=== PATIENT | female | born 1950 | race Caucasian/White ===

== ENCOUNTER 2025-02-25 10:32 | Day surgery (SDC) | payer OTHER, SELFPAY ==
--- NOTE | 2025-02-05 08:23 | PM.GYNHP.1 ---
History of Present Illness History of Present Illness Narrative: Caroline Cohen is a 74 year old female Date of procedure:?? feb 25, 2025 Preoperative diagnosis:? uterine prolapse cystocele (stage 3, +4) stress incontinence Planned Procedure:?? TVH, USVS, Ant repair, sling, cystoscopy Postop Meds Tylenol 1000 mg, ?3 times a day? Motrin 400 mg 3 times a day Oycodone 5 mg,? take 1 pill every 4-6 hr as needed, # 15? Colace,? 1 pill BID, for constipation CC: Prolapse and incontinence HPI: 73-year-old female who presents for evaluation of above complaint.?? She reports onset of symptoms 2 years ago.?? She considers this a? Moderate? problem. She is considering surgery for her prolapse and incontinence 1. Prolapse She reports a large vaginal bulge that protrudes past the introitus when she strains. She sees and feels it. She also has prolapse symptoms of heaviness, incomplete bladder emptying, and sometimes needs to push the bulge back in in order to empty her bladder. She was seen down at [facility] for prolapse and incontinence and was treated with 2 different types of incontinence dish pessaries. These both fell out and would not remain in place. She does not wish to try anymore pessaries. She would like to proceed with surgery. Exam demonstrates stage III prolapse with cystocele at +4 and cervix at +1. Also a positive empty cough stress test, PVR 85 cc. 2. Mixed stress and urge incontinence She has stress incontinence about once a day with the triggers as listed below. She has urge incontinence about 5 times a day with a full bladder and about once a week it is a large leak that runs down her legs. She uses 2 regular pads in the day and none at night. She has tried using Gemtesa for this but it did not help. She does not have urinary frequency, voids every 3-4 hours in the day, nocturia x1, she does have severe urgency. She has been trying to void by the clock about every 2-1/2-3 hours to preempt the leaking. She had a positive cough stress test on exam confirming the diagnosis of stress incontinence. She would like to proceed with surgery. We also discussed using oxybutynin XL 10 mg a day for the urge incontinence. She would prefer to have the surgery 1st and then after surgery see if she needs to treat her urge incontinence and then she would try this medicine. So we will reassess the urgency incontinence at 6 weeks postop She uses estrogen vaginal suppositories and also takes metformin. Very healthy, very active, can walk a long distance prior hyst -no -x1 c-sec -0 Pelvic Floor Review of Systems: (HPI) Stress Urinary Incontinence symptoms (CHANELLE): Once a day Triggers include: Sneeze, cough, laugh, exercise, walk ? Urge Incontinence symptoms (Urge UI): 5 times per day Triggers include: Full bladder with urge ? Pads: She wears 2 regular pads in the day Overactive Bladder symptoms (OAB):? ? Frequency:?? Every 3-4 hour Nocturia:?? X1 Urgency:?? Severe Prior incontinence treatment includes:? Medical:? Gemtesa Surgical:? No? Kegels:?? Yes Physical therapy:?No? Pessary:?No? Diet / Fluids: Fluid restriction:? No Excessive fluids:?No Pain symptoms:? Painful bladder:???No Dysuria:??? No Dyspareunia:? No Dysmenorrhea:? No Urinary Risk Factors UTI?s, recurrent:? No Hematuria:? No Kidney Stones:?No? Tobacco use:? No Pelvic Organ Prolapse (POP) symptoms:?? Bulge:?Yes Pressure and /or? Heaviness:?Yes Splint for defecation or voiding:???Yes Voiding dysfunction: Abnormal stream:? No Strain to void:? No Incomplete emptying: Yes Voiding difficulty:? No Retention:??? No Bowel Function: Constipation:?No Strain to defecate:?No Fiber:?No Laxatives:?No Fecal Incontinence:? Liquid stool:? Occasional Solid stool:?No?? Sexual function Sexually active:? No Incontinence with sex:? No ? General Review of Systems: Constitutional, CV, Endo, Musc-skel, Eyes, Cancer, Skin, Breast, GI, Heme/Lymph, Psych, Urinary, Neuro, Career Resource Specialist, Resp, Sexual:??? Pertinent positives listed above in HPI All others reviewed and negative. All reviewed on patient questionnaire.? . . PFSH Allergies SULFA Adverse Reaction (Mild, Uncoded 11/27/24 14:38) N&V with too much sulfa Medications blood sugar diagnostic (Contour Next Test Strips) #10 ea 11/27/24 [History Confirmed 11/27/24] estradiol 10 mcg vaginal tablet 10 mcg vaginal 2XW 11/27/24 [History Confirmed 11/27/24] metformin 500 mg tablet,extended release 24 hr 1,000 mg PO BID 11/27/24 [History Confirmed 11/27/24] repaglinide 1 mg tablet 1 mg PO 3XD 11/27/24 [History Confirmed 11/27/24] Medical History (Updated 11/27/24 @ 16:41 by Bennett Espinoza MD) Stress incontinence, female Urge incontinence Uterine prolapse Cystocele, midline Comment: Past surgical history none Past medical history, diabetes Medications, metformin, estrogen vaginal Social ,history, single, social alcohol, no tobacc no substance abuse Family, father of old age, had bladder cancer, ;age 82; mother of old age, age 101 Exam Vitals 11/27/2513:39 Height 5 ft 3 in Weight 120 lb BMI 21.2 BP 100/60 Blood Pressure Location Lt brachial Position Sitting General: healthy, alert, coherent, no acute distress, cooperative, nontoxic Pulmonary: normal breathing, no distress Abdomen: soft, no mass, non-distended, no hernia, non-tender Vulva: Normal labia majora, labia minora, introitus, and clitoris, non-tender Urethra meatus: normal, no discharge Perineum: Normal, non-tender Urethra: No mass, non-tender Bladder: no mass, non-tender Vagina: No lesions, no discharge, [id number] atrophy, non-tender Prolapse stage III cystocele, stage II uterine prolapse, no significant rectocele Levators: Non-tender, Cervix: Normal, down to the introitus, No lesions, no discharge, non-tender Uterus: normal size, non-tender Bimanual: no mass, no adnexal mass, non-tender Anus: No lesion, non-tender, no hemorrhoid Empty Cough Stress test: Positive PVR: 85 mL by catheter Urethral angle hypermobile: Yes POP-Q Exam: Aa: 0 Ba: +4 Ap: -2 Bp: -2 C: +1 D: -4 TVL: 10 GH: 3 PB: 3 Introitus size: X2 fingerbreadths Cystocele stage: Stage III Rectocele stage: Stage 1 Uterine/Vault Prolapse Stage: Stage II Assessment & Plan (1) Cystocele, midline: Status: Acute (2) Uterine prolapse: Status: Acute (3) Urge incontinence: Status: Acute (4) Stress incontinence, female: Assessment and Plan ? Patient counseled regarding above conditions.? Educational materials given to patient. 1. Pelvic Organ Prolapse - Stage 3, cystocele and uterus.? This diagnosis and its etiology was discussed with the patient.? Treatment options were discussed including: expectant management, pessary trial, and surgical intervention. We briefly discussed risks and benefits of surgery. All surgery for prolapse is not 100% successful and there is a chance of recurrence or failure. Pessary failed and declines additional she desires surgery my recommendation = TVH, U.S. VS, anterior repair, sling, cystoscopy see below for counseling 2. Stress Urinary Incontinence with urethral hypermobility:? This diagnosis was discussed with the patient. The etiology was explained. Treatment options were discussed including expectant management, pelvic floor exercises, pessary trial, and surgical intervention (mid-urethral sling, Rosa urethropexy, P-V sling, Pau urethral plication, urethral bulking injection).? Risks and benefits of surgery were briefly outlined. We discussed that she is a candidate for a Midurethral Sling as treatment of her stress incontinence. Success rate of being dry from stress incontinence is about 80-85%; another 10-15% of patients are markedly improved but not cured;? 1-2% will fail, and 1-2% will need the sling cut because it is too tight.? The risk of temporary urinary retention requeiring temporary catheterization is about 15-20%; risk of urinary retention requiring sling release procedure is about 1-2%, as noted above.? We discussed the small 1-3% of mesh erosion as well as the small risk of de edison urgency.? This procedure is not designed to treat Urge Incontinence symptoms; however, 30-50% of patients with overactive bladder/ urgency urinary incontinence will have improvement in these symptoms, in 30% these symptoms will stay the same, and in 20-30% these symptoms will worsen. see below for counseling 3. Overactive bladder and urge incontinence.?? This diagnosis and its etiology was discussed with the patient.? Treatment options were discussed including: Behavior changes ( Limit fluid intake, Avoiding fluid intake 3 hours before bedtime, Avoiding bladder irritants / follow bladder diet, Bladder training exercises), Kegel / pelvic floor muscle exercises,? OAB Medications, and procedures to include:? bladder botox A injections, Interstim, and PTNS.?? OAB handout given.? No OAB med treatment for now, just behavior changes. Reassess postop and treat accordingly Surgical Counselling Note Patient seen for surgical counselling.? She desires surgical repair. Please see? H & P for exam and discussion. Date of procedure:?? feb 25, 2025 Preoperative diagnosis:? uterine prolapse cystocele (stage 3, +4) stress incontinence Planned Procedure:?? TVH, USVS, Ant repair, sling, cystoscopy Postop Meds Tylenol 1000 mg, ?3 times a day? Motrin 400 mg 3 times a day Oycodone 5 mg,? take 1 pill every 4-6 hr as needed, # 15? Colace,? 1 pill BID, for constipation Patient counseled extensively about the Risks, Benefits, and Alternatives to surgery.? She was offered the opportunity to ask any questions, and all questions were answered. ? Surgical Risks include: Bleeding, Hemorrhage, Transfusion, Infection (especially wound or bladder), Injury to adjacent organs (especially bladder, ureter, bowel, blood vessels, nerves), Postop or Chronic Pain, need for Reoperation, and Life-threatening event (especially M.I., CVA, PE, DVT). Procedure Risks include: Failure to Cure condition, Recurrence of condition months or years later, Urinary incontinence, Voiding dysfunction or Urinary Retention with prolonged catheter use, Poor wound healing, Erosions of any mesh or graft used, Dyspareunia, Vaginal scarring or narrowing, Need for additional surgery (immediate or delayed).? The expected cure and improvement and failure rates were discussed. Patient counseled to avoid the following for 6 weeks after surgery: (1) Impact sports (like running or jumping), walking and stairs OK (2) Lifting over 20# (3) Sexual intercourse No limits after 6 weeks. ? Good exercise tolerance, > 4 Mets. Her current medications were reviewed, and instructions given over which to use and which to discontinue before surgery.? Post-operative care instructions reviewed.? We discussed post-operative pain: Pain should be in the mild-moderate range, but can be moderate-severe for the first few days.?? Prescriptions will typically be given for (1) acetaminophen (Tylenol) and (2) non-steroidal anti-inflammatory drug (NSAID, like Motrin or Naprosyn), use both together, around the clock. Prescription will also be given for a (3) narcotic pain medication. Use the narcotic as needed, as a booster to the Tylenol and NSAID. You might need 0-4 narcotic pills a day typically. The narcotic will only be needed for a few days.?? Gradually use less of the narcotic, but continue the Tylenol and NSAID.? After a few days, the narcotic should no longer be needed, and only the Tylenol and NSAID will be needed.? Warm packs or cold packs can also be used for pain.??Do not drive for as long as you are using the narcotic pain medication? - this should only be a few days.?? Constipation is associated with use of narcotic pain medications, and can be improved with use of a stool softener, or fiber, or a mild laxative.? If you are sent home from the hospital with a Farley Catheter in place:? please call the office on the day after surgery We will usually remove the catheter 2-4 days after surgery: a. You will perform an at home Farley catheter removal -or- b. You will come in to the office for a voiding trial, (For some unusual surgeries, we might leave the catheter in for up to 2 weeks, and then remove it.) Instructions for at home Farley catheter removal..... For at-home Farley catheter removal, this can be done on postop day 2 or 3 or 4, depending on various factors. 1. At 6 or 7 a.m., have the patient cut the Farley catheter with scissors, while standing in a shower or bath tub. a. Cut the catheter right in the middle of the tubing, about 6 inches from the body. b. The sterile water that is inside the Farley balloon will leak all over the floor of the shower or bath tub. This is expected. c. The catheter will either fall out of the urethra, or just gently pull on it and it will come out. 2. Now, the bladder will gradually fill up over the next few hours. 3. Go ahead and empty the bladder when you feel an urge to void. Please note how strong the urine stream is. a. If the urine stream is normal or close to normal, then everything is good to go. b. If the urine stream is slow or you can not void, then return to the clinic in the afternoon. We will place another Farley catheter. We will repeat the voiding trial in 3-4 days. All of her questions were answered Bennett Espinoza MD UroGynecology & Pelvic Reconstructive Surgery [facility] Medical History (Updated 11/27/24 @ 16:41 by Bennett Espinoza MD) Stress incontinence, female Urge incontinence Uterine prolapse Cystocele, midline Meds Home Medications and Allergies Home Medications ?Medication ?Instructions ?Recorded ?Confirmed ?Type blood sugar diagnostic (Contour #10 ea 11/27/24 11/27/24 History Next Test Strips) estradiol 10 mcg vaginal tablet 10 mcg vaginal 2XW 11/27/24 11/27/24 History metformin 500 mg tablet,extended 1,000 mg PO BID 11/27/24 11/27/24 History release 24 hr repaglinide 1 mg tablet 1 mg PO 3XD 11/27/24 11/27/24 History oxycodone 5 mg tablet 5 mg PO Q8H PRN pain #15 tabs 02/05/25 02/05/25 Rx Allergies Allergy/AdvReac Type Severity Reaction Status Date / Time SULFA AdvReac Mild N&V with Uncoded 11/27/24 14:38 too much sulfa Assessment & Plan Assessment and plan (1) Cystocele, midline: Status: Acute (2) Stress incontinence, female: Status: Acute (3) Uterine prolapse: Status: Acute Time-Based Coding :: [TOTAL MINUTES] spent with patient and on the chart (including review of chart, obtaining history, exam, reviewing outside data, placing orders, documenting exam and treatment plan, and counseling patient) on [DATE].
[2025-02-06 12:45] VITALS: BMI 21.2
[2025-02-25] VITALS (13 sets, daily range): BP systolic 91–122; BP diastolic 40–74; PULSE 55–72; RESP 14–18; TEMP 36.2–36.6; O2SAT 93–99; BMI 21.2
--- NOTE | 2025-02-25 | PATH_ITS ---
[facility] Accession Number: [id number] No. of containers..01 Tissue . 01 Material submitted: . uterus - UTERUS AND CERVIX . 01 Diagnosis: UTERUS AND CERVIX, TOTAL VAGINAL HYSTERECTOMY (WEIGHT 30 GRAMS): Cervix with parakeratosis, consistent with prolapse. Endocervix with scattered prominent Nabothian gland cysts and otherwise no significant histomorphologic abnormality. Endometrium with features of cystic atrophy. Myometrium with no significant histomorphologic abnormality. Uterine serosa with no significant histomorphologic abnormality. [facility] 03/05/2025 1553 Local . 01 Electronically signed: . Shabnam Rodriguez MD, Pathologist NPI- [id number] . 01 Gross description: . Received in formalin with two patient identifiers, and uterus and cervix is a uterus with attached cervix that is 30 grams, 6.0 cm cervix to fundus by 3.1 cm cornu to cornu by 2.2 cm anterior to posterior. Adnexa are not present. The cervix is 1.8 cm long by 3.5 cm diameter with barajas, smooth mucosa and patent os. The serosa is barajas-brown, ragged and focally hemorrhagic. The endometrium is barajas, smooth and attenuated, 0.1 cm thick. The myometrium is pink-barajas, mildly trabeculated and up to 1.0 cm thick. No discrete masses or lesions are grossly identified. Brand Inspector sections are submitted as follows: A1: Anterior and posterior cervix. A2: Anterior endomyometrium. A3: Posterior endomyometrium. ([id number]) /MRV 02/26/2025 1651 Local . 01 Pathologist provided ICD-10: N81.4, N81.11, N39.3 . 01 CPT . 363773 Specimen Comment: A courtesy copy of this report has been sent to [facility] Pathology Performed at: [address] [address] [address] [address], [place], [place] [id number] MD Shaji Daniels MD Phone: [phone]
--- NOTE | 2025-02-25 10:59 | EKG_ITS ---
[address] [address] [address] [address] Test Date: 2025-02-25 Pat Name: Caroline Cohen Department: Room: Gender: Female Hazardous Material Specialist: Marce VALERO : 1950 Requested By: Order Number: [id number] Reading MD: Mitesh Rivera MD Measurements Intervals [place] Rate: 56 P: 60 IA: 148 QRS: 71 QRSD: 80 T: 57 QT: 414 QTc: 399 Interpretive Statements Sinus bradycardia Electronically Signed On 02-25-2025 12:42:26 PST by Mitesh Rivera MD
[2025-02-25] MEDS: SCOPOLAMINE 1 PATCH TOP (11:18)
[2025-02-25] MEDS: ACETAMINOPHEN 325 MG TABLET 975 MG PO ×2 (11:18→20:05)
[2025-02-25] MEDS: PHENAZOPYRIDINE 100 MG TABLET 200 MG PO (11:18)
[2025-02-25] MEDS: LACTATED RINGERS 1,000 ML 42 ML IV ×3 (11:19→17:42)
[2025-02-25] MEDS: GABAPENTIN 300 MG CAPSULE PO (11:19)
[2025-02-25 11:27] LABS: Add Manual Diff / Slide Review NO; Hematocrit 41.3 % (36-46); Hemoglobin 13.7 g/dL (12.0-16.0); Lymphocytes Absolute Auto 1300 /uL (1100-4500); Mean Corpuscular HGB Conc 33.0 % (30-36); Mean Corpuscular Hemoglobin 31.1 PG (26-34); Mean Corpuscular Volume 94.0 fL (80-100); Platelet Count 202 X10^3/uL (150-400)
[2025-02-25 11:39] LABS: Blood Urea Nitrogen 15 mg/dL (7-17); Calcium 9.1 mg/dL (8.4-10.2); Carbon Dioxide 25 mmol/L (22-32); Chloride 105 mmol/L (98-107); Estimated Glomerular Filt Rate > 60 mL/min (>60); Glucose 182 mg/dL (70-99); HEMOLYSIS < 15 (0-50); Potassium 4.1 mmol/L (3.4-5.1); Sodium 138 mmol/L (137-145)
--- NOTE | 2025-02-25 12:10 | PM.PREOP ---
Pre-operative Note Interval Note History & Physical reviewed/Exam performed by Physician: Yes Changes to H&P: No
--- NOTE | 2025-02-25 12:13 | SUR.OPER ---
Lithotomy on padded OR bed. Lantana Pad Positioner under torso. Head on pillow, arms padded and tucked at sides. Legs secured in padded yellow fins stirrups. P
[2025-02-25] MEDS: LIDOCAINE 1% 20 ML INJ (13:22)
--- NOTE | 2025-02-25 15:35 | P.OP_ITS ---
Operative Date/Time/Diagnoses Date of procedure: 02/25/25 Time of procedure: 13:05 Pre-op diagnosis: Uterine prolapse, cystocele, stress incontinence Post-op diagnosis: same Procedure & Clinicians Procedure: Procedures Operation Date: 02/25/25 12:15 Actual Procedure Side Surgeon p Total Vaginal Hysterectomy, uterosacral vault suspension, Bennett Espinoza MD s Anterior Repair Bennett Espinoza MD s Urethral sling, cystoscopy Bennett Espinoza MD Operative Notes Findings: Operative Note Surgeon:? Bennett Espinoza MD Product Marketing Coordinator:?? none Pre-Op Diagnosis:?? Uterine prolapse, cystocele, Stress urinary incontinence Post-Op Diagnosis:?? Same? Procedure:?? Vaginal hysterectomy, uterosacral ligament vaginal vault suspension, anterior colporrhaphy, Jesenia Retropubic mid-urethral sling, cystoscopy Findings (brief): ? 1.? EUA with stage 3 POP as noted on preop exam. Ba +4. C +1. Normal size uterus, tubes, ovaries.?? TVH in usual fashion.? 2.? USVS with 2 sutures of 0-PDS on each side.? Excellent apical support when done.? Cystoscopy with bilateral ureteral jets noted.? 3.? Anterior colporrhaphy in usual fashion. Bladder fascia reapproximated with running 2-0 Vicryl , 4 mattress sutures of 2-0 Vicryl for plication. Approximately 12 mm of redundant vaginal mucosa was excised on each side. ? 4.? Jesenia Retropubic TVT sling placed at mid-urethra, tension-free.? Cystoscopy with normal bladder, urethra, ureters,? no trocar injury. ? Date of Surgery:? Feb 25, 2025 Complications:? None Specimens:? Uterus, cervix Anesthesia Technique:?? General endotracheal Estimated Blood Loss (mls):? 100 Blood Replacement (mls):? none Drains:? Arguello Condition:? Stable Procedure in detail: After consent was confirmed, the patient was taken to the operating room and placed under general anesthesia without incident.? Sequential compression devices were in place and active.? She received perioperative antibiotics.? She was then prepped and draped in the usual sterile fashion after placement in the dorsal lithotomy position using the Rafael stirrups.? A Arguello catheter was placed.? A weighted speculum was placed in the vagina and the cervix was grasped with a tenaculum. The cervix was circumferentially injected with 10-20 cc of 0.5% lidocaine / epinephrine 1:200,000.? A circumferential incision was made with electrocautery through the vaginal mucosa and carried down to the underlying cervical stroma. The posterior peritoneum was entered sharply and a retractor was placed.? Curved Laurie clamps and 0-vicryl sutures were used.? The uterosacral ligaments were clamped, cut, and ligated bilaterally, and then tagged for use later in the case.? The anterior peritoneum entered sharply, and a arguello catheter was placed.? The cardinal ligaments were clamped, cut, and ligated bilaterally.? The uterine vessels were clamped, cut, and ligated bilaterally. The broad ligaments were clamped, cut, and ligated bilaterally.? The utero-ovarian ligaments were clamped, cut, and ligated bilaterally, and the cervix and uterus were removed.? Inspection of all pedicles was completed and hemostatis was assured.? The fallopian tubes and ovaries appeared grossly normal an were left in situ. ? A large laparotomy surgical sponge was placed into the pelvis and a Tariq retractor was used to elevate the sponge and bowel to expose the pelvic sidewalls and utero-sacral ligaments.? Tension was placed on the previously tagged left Utero-Sacral ligament, and 2 sutures of 0-PDS were placed through the U-S ligament, just above the ischial spine, and tagged for use later.? The same procedure was done on the right U-S ligament.? Cystoscopy was performed to confirm ureteral patency with a 70 degree lens. The bladder and ureters were normal and bilateral ureteral efflux with pyridium was seen, first without and then with traction on the U-S ligament suspension sutures, confirming ureteral patency.? The large sponge was removed.?? Attention was then turned to the anterior vaginal wall. The anterior vaginal mucosa was grasped with Allis clamps and was injected with 10-20 cc of 0.5% lidocaine / epinephrine 1:200,000.? A midline incision was made with a scalpel, from the U-V junction to the apex. The vaginal mucosa was dissected off of the underlying pubocervical fascia until the sidewalls were reached.?? The bladder fascia was plicated with running 2-0 vicryl, and then the vaginal mucosa was plicated with 4 horizontal mattress sutures of 2-0 vicryl. Excess anterior vaginal mucosa was trimmed and the incision was closed with 2-0 vicryl. ? The 2 Left U-S ligament suspension sutures were passed through the left side of the vaginal apex, approximately at the left apical sidewall at the tagged left utero-sacral ligament, then about 1 -2 cm medial. The same procedure was done on the Right side. The vaginal cuff was closed with 2 running sutures of 0-vicryl. The U-S ligament suspension sutures were tied, elevating the vaginal apex several centimeters deep into the pelvis. With the Arguello catheter in place, the anterior vaginal mucosa beneath and lateral to the urethra was injected with 10-20 cc of? 0.5% lidocaine / epinephrine 1:200,000.? A 2-3 cm midline incision was made at the level of the midurethra with a scapel. Metzenbaum scissors were used to dissect the vagina from the urethra and then create tunnels beneath the vaginal mucosa up toward the pubic bone on each side.? A marking pen was used to geri the skin just above the pubic bone and 2 cm from the midline bilaterally, and two small 8-10 mm incisions were made on the suprapubic skin.? The trocar was passed from the right vaginal tunnel, behind the pubic bone, to the right suprapubic incision, and this was repeated on the left side.? The Arguello catheter was removed, and cystoscopy was performed with a 70 degree lens. There was no trocar injury, and the bladder, ureters, and urethra were normal.? The Arguello catheter was reinserted.? The sling was pulled into position in a tension-free manner, and a Pau clamp was easily passed between the sling and the urethra.? The plastic sheaths were removed to anchor the sling, and tension was checked again. The ends of the sling were trimmed just below the skin, and the skin incisions were cleaned and closed with dermabond. The vaginal incision was closed with 2-0 vicryl in a running fashion. Sponge, needle and instrument count was correct.? The patient tolerated the procedure well and was taken to the recovery room in stable condition. Bennett Espinoza MD UroGynecology & Pelvic Reconstructive Surgery [place], [place] Applied: implant(s) (Jesenia retropubic TVT type sling)
[2025-02-25] MEDS: DOCUSATE 100 MG CAPSULE PO (20:06)
[2025-02-26] VITALS (12 sets, daily range): BP systolic 77–102; BP diastolic 41–56; PULSE 52–72; RESP 17; O2SAT 95–99
[2025-02-26] MEDS: SODIUM CHLORIDE 0.9% 500 ML 1000 ML IV (00:05)
[2025-02-26 02:21] LABS: Hematocrit 35.2 % (36-46); Hemoglobin 11.7 g/dL (12.0-16.0)
--- NOTE | 2025-02-26 05:21 | PC.NURSE ---
At approximately 2345, this RN was notified of a low blood pressure of 97/41. Recheck showed BP of 77/41. Patient asymptomatic, afebrile, HR WNL for patient. Minimal blood on pad, urine clear orange (pyridium administered earlier) Provider data security consultant contacted, ordered a 500 mL NS bolus and an H/H. BP continues to remain low but stable, with MAPs ranging from 60-65. Patient remains asymptomatic.
[2025-02-26] MEDS: LACTATED RINGERS 1,000 ML 42 ML IV (06:46)
[2025-02-26] MEDS: ACETAMINOPHEN 325 MG TABLET 975 MG PO (08:19)
[2025-02-26] MEDS: DOCUSATE 100 MG CAPSULE PO (08:19)
--- NOTE | 2025-02-26 11:10 | CM.DANOTE ---
B DCP Assessment note pt is a 74yo F POD1 hysterectomy with Dr. Espinoza. DEPUTY SHERIFF GENERALIST/BAILIFF reviewed EMR per chart, lives indep in [facility] alone. drives. no DME. per provider, cleared to dc today. per RN/chart review, no identified barriers to safe dc home. pt left prior to being seen by this DEPUTY SHERIFF GENERALIST/BAILIFF P: dc today with OP f/u. no needs. will continue to follow as needed should any arise MAME Dolan Discharge Planning/Care Management CM Discharge Assessment Start: 02/25/25 17:02 Freq: Status: Discharge Protocol: Document 02/26/25 11:08 (Rec: 02/26/25 11:10 [id number]) Discharge Planning Assessment Assigned Discharge MAME Davalos Configuration Management Advisor Provider Kylie Markham [facility] DPOA/Assigned wilfredo George Designee Name Contact Information [phone] Advance Directives? Yes Advance Directives No on File History Provided By Patient Prior Living House Arrangements Household Members none Type of Drives own vehicle transporation used prior to admit Independent with ADL Yes 's Is patient alert and Yes oriented? Barriers to No Discharge Discharge Plan Home Referrals Initiated None needed Review Status In Process Please Provide Date 02/26/25 Initial DC Assessment Was Performed Next Review Type Continued Stay Review Pre-Anesthesia Assessment Start: 02/06/25 12:45 Freq: Status: Complete Protocol: Document 02/06/25 12:45 CAB (Rec: 02/06/25 13:05 CAB [id number]) Pre-Anesthesia Assessment Information obtained Chart review via Height 160.02 cm Weight 54.431 kg Body Mass Index (BMI 21.2 ) Has patient seen a Yes specialist in last 12 months? If yes, specialist Fuel Handler,Urologist seen Patient experienced None in the last year Does patient have None history of Is patient on No anticoagulant therapy? Does patient have No history of a pacemaker/ICD? Can patient walk Yes around the grocery store without shortness of breath? Does patient have None history of Does patient have No history of Sleep Apnea? Does patient have No any memory problems? Does patient have None history of Mobility device(s) None used Does patient have a No neurostimulator or pain stimulator? Does patient have No history of GERD? Does patient have No history of kidney/ liver problems/ disease? Does patient have Yes Diabetes? Insulin pump or No continuous glucose monitor? GLP-1? No Does patient have No history of thyroid problems? Is patient ? No Is patient No ? Alcohol intake holidays/special occasions only Smoking status Never smoker Anesthesia Review No Requested
== END 2025-02-26 10:37 | disposition home or self-care (01) ==
LOC: OR 15:34 → AC 16:29
PROVIDERS: Student in an Organized Health Care Education/Training Program; PCP Family Medicine; Referring Provider Family Medicine; Visit Provider Obstetrics & Gynecology Gynecology
PROC: (CPT 58260; principal; 2025-02-25 12:15)
PROC: (CPT 58260; 2025-02-25 12:15)
PROC: 0TSD0ZZ Reposition Urethra, Open Approach (ICD-10-PCS; CPT 58260; 2025-02-25 12:15)
DX: N81.4 Uterovaginal prolapse, unspecified (principal); N81.11 Cystocele, midline; N39.46 Mixed incontinence; N88.8 Other specified noninflammatory disorders of cervix uteri; E11.9 Type 2 diabetes mellitus without complications; Z79.84 Long term (current) use of oral hypoglycemic drugs
CPT/HCPCS: 58260; 57283; 57240; 57288; 36415; 80048; 82962; 85014; 85018; 85025; 93005; 93010; C1781; J0689; J1885; J2405; J2704; J2765; J3010; J3490; J7040; J7120